=== PATIENT | female | born 1950 | race Caucasian/White ===

== ENCOUNTER 2017-07-21 13:52 | Inpatient (IN) ==
--- NOTE | 2017-07-20 16:46 | Discharge Summary ---
<Madhavi Bush E - Last Filed: 07/20/17 16:43> Date of Encounter: 07/20/17 - Discharge Diagnosis (1) Arthritis of left knee Priority: Primary Status: Chronic (2) Chronic pain Priority: Secondary Status: Chronic Qualifiers: Chronic pain type: other chronic pain Qualified Code(s): G89.29 - Other chronic pain (3) Osteoporosis Priority: Secondary Status: Chronic Qualifiers: Osteoporosis type: unspecified Presence of current pathological fracture: unspecified Qualified Code(s): M81.0 - Age-related osteoporosis without current pathological fracture (4) Asthma Priority: Secondary Status: Chronic Qualifiers: Asthma severity: unspecified severity Asthma persistence: unspecified Asthma complication type: unspecified Qualified Code(s): J45.909 - Unspecified asthma, uncomplicated (5) Nicotine dependence Priority: Secondary Status: Chronic Qualifiers: Nicotine product type: unspecified Substance use status: unspecified nicotine-induced disorder Qualified Code(s): F17.209 - Nicotine dependence, unspecified, with unspecified nicotine-induced disorders (6) HTN (hypertension) Priority: Secondary Status: Chronic Qualifiers: Hypertension type: unspecified Qualified Code(s): I10 - Essential (primary ) hypertension (7) Rheumatoid arthritis Priority: Secondary Status: Acute Qualifiers: Rheumatoid arthritis location: unspecified site Rheumatoid factor presence : without rheumatoid factor Qualified Code(s): M06.00 - Rheumatoid arthritis without rheumatoid factor, unspecified site - Discharge Medications Home Medications: Albuterol Sulfate [Proair Hfa] 2 puff IH Q4H PRN 06/30/16 [History] Cetirizine HCl [Zyrtec] 10 mg PO DAILY 06/30/16 [History] Montelukast [Singulair] 10 mg PO QPM 06/30/16 [History] Paroxetine [Paxil] 30 mg PO DAILY 06/30/16 [History] amLODIPine [Norvasc] 10 mg PO DAILY 06/30/16 [History] Aspirin Enteric Coated [Aspirin EC] 325 mg PO DAILY 21 Days #21 tablet. [Rx] Alendronate Sodium 70 mg PO WE 07/21/17 [History] Cyanocobalamin (Vitamin B-12) [Vitamin B12] 1,000 mcg PO DAILY 07/21/17 [History ] Etanercept [Enbrel] 50 mg SQ WE 07/21/17 [History] Hydrocodone/Acetaminophen [Abbott 5-325 Tablet] 1 tab PO TID PRN 07/21/17 [ History] Hydroxychloroquine [Plaquenuil] 200 mg PO BID 07/21/17 [History] Linaclotide [Linzess] 290 mcg PO DAILY 07/21/17 [History] Mometasone/Formoterol [Dulera 200 Mcg/5 Mcg Inhaler] 2 puff IH BID 07/21/17 [ History] predniSONE [PredniSONE] 5 mg PO DAILY 07/21/17 [History] raNITIdine HCl [Ranitidine HCl] 150 mg PO DAILY 07/21/17 [History] Allergies/Adverse Reactions: 3 Allergy/AdvReac Type Severity Reaction Status Date / Time No Known Allergies Allergy Verified 07/11/17 15:41 Primary care physician: Cha Araiza CNP - Patient Status Disposition: Transfer Inpatient Rehab Fac Condition: Good - Discharge Instructions Follow Up With: Cha Araiza CNP [Primary Care Provider] - - Hospital Course Hospital course: Ms. Cotto is a 67 year old female - Time Spent with Patient Total time spent providing and/or coordinating discharge services: <Alex Watkins - Last Filed: 07/23/17 08:11> Date of Encounter: 07/23/17 Time of Encounter: 08:09 - Discharge Diagnosis (1) Obesity (BMI 30.0-34.9) Priority: Secondary Status: Chronic (2) Arthritis of left knee Priority: Primary Status: Chronic (3) Chronic pain Priority: Secondary Status: Chronic Qualifiers: Chronic pain type: other chronic pain Qualified Code(s): G89.29 - Other chronic pain (4) Osteoporosis Priority: Secondary Status: Chronic Qualifiers: Osteoporosis type: unspecified Presence of current pathological fracture: unspecified Qualified Code(s): M81.0 - Age-related osteoporosis without current pathological fracture (5) Asthma Priority: Secondary Status: Chronic Qualifiers: Asthma severity: unspecified severity Asthma persistence: unspecified Asthma complication type: unspecified Qualified Code(s): J45.909 - Unspecified asthma, uncomplicated (6) Nicotine dependence Priority: Secondary Status: Chronic Qualifiers: Nicotine product type: unspecified Substance use status: unspecified nicotine-induced disorder Qualified Code(s): F17.209 - Nicotine dependence, unspecified, with unspecified nicotine-induced disorders (7) HTN (hypertension) Priority: Secondary Status: Chronic Qualifiers: Hypertension type: unspecified Qualified Code(s): I10 - Essential (primary ) hypertension (8) Rheumatoid arthritis Priority: Secondary Status: Acute Qualifiers: Rheumatoid arthritis location: unspecified site Rheumatoid factor presence : without rheumatoid factor Qualified Code(s): M06.00 - Rheumatoid arthritis without rheumatoid factor, unspecified site (9) Status post total left knee replacement Priority: Primary Status: Acute (10) Acute blood loss anemia Priority: Primary Status: Acute Primary care physician: Cha Araiza CNP - Patient Status Functional capacity at discharge: uses cane/walker Overall status at discharge: patient is progressing back to baseline - Hospital Course Hospital course: Ms. Cotto is a 67 year old female post total knee replacement The patient had an uneventful postoperative course. They received antibiotics and physical therapy and were discharged in stable condition. There will follow -up in the office in 2 weeks. - Time Spent with Patient Total time spent providing and/or coordinating discharge services:
--- NOTE | 2017-07-20 16:47 | Physician Discharge Referral ---
ExtendedCare Referral Info Transfer To: [facility]S [facility] BEDS AT [facility] Provider in Charge: Dr Alex Watkins - Diagnosis (1) Arthritis of left knee Priority: Primary Status: Chronic (2) Chronic pain Priority: Secondary Status: Chronic (3) Osteoporosis Priority: Secondary Status: Chronic (4) Asthma Priority: Secondary Status: Chronic (5) Nicotine dependence Priority: Secondary Status: Chronic (6) HTN (hypertension) Priority: Secondary Status: Chronic (7) Rheumatoid arthritis Priority: Secondary Status: Acute (8) Status post total left knee replacement Priority: Primary Status: Acute Expected Duration of Placement: less than 30 days Prognosis: Good Aware of Diagnosis: Patient Aware of Prognosis: Patient - Transfer Medications Prescriptions: Aspirin Enteric Coated [Aspirin EC] 325 mg PO DAILY 21 Days #21 tablet. Home Medications: Albuterol Sulfate [Proair Hfa] 1 puff IH DAILY 06/30/16 [History] Cetirizine HCl [Zyrtec] 10 mg PO DAILY 06/30/16 [History] Cyanocobalamin (Vitamin B-12) [Vitamin B12] 5,000 mcg PO DAILY 06/30/16 [History ] Hydrocodone/Acetaminophen [Shamrock 5-325 Tablet] 1 each PO 3-4XD PRN #6 tablet [Rx] Mometasone/Formoterol [Dulera 100 Mcg/5 Mcg Inhaler] 13 gm IH DAILY 06/30/16 [ History] Montelukast [Singulair] 10 mg PO DAILY 06/30/16 [History] Naproxen [Naprosyn] 500 mg PO BID 06/30/16 [History] Paroxetine [Paxil] 30 mg PO DAILY 06/30/16 [History] Tramadol HCl [Ultram] 50 mg PO TID PRN 06/30/16 [History] amLODIPine [Norvasc] 10 mg PO DAILY 06/30/16 [History] Aspirin Enteric Coated [Aspirin EC] 325 mg PO DAILY 21 Days #21 tablet. [Rx] Allergies/Adverse Reactions: 3 Allergy/AdvReac Type Severity Reaction Status Date / Time No Known Allergies Allergy Verified 07/11/17 15:41 - Respiratory Orders Smoking Cessation: Smoking cessation has been advised. For more information, call the [place] Tobacco Quit Line at 0-978-UROJ-NOW. - Ancillary Orders May use pressure relief devices daily prn, May go on KAVON w/family/respon libertarian w /meds at nurse discretion PRN, May consult with Dentist, Bomb Squad Commander, Eligibility Examiner PRN - Mobility Orders Chair, Ambulate - Rehabiliation Orders Rehab Potential: Good Rehab Orders: Evaluation for Physical Therapy, Evaluation for Occupational Therapy Other: Total Knee replacement Precautions x 6 weeks Apply cold therapy wrap 3-6x/day for 20 minutes at a time. Encourage ambulation throughout the day and incentive spirometer 10x/hour. Elevate affected extremity above heart as tolerated. Brace: Wear knee immobilizer at night x 2 weeks. - Treatments Skin tear care topically daily PRN per policy List/Other: Opsite placed. Keep dressing intact until first follow up appointment. If > 50% saturated, notify office, remove dressing and place appropriate dressing back in place. Leave Zipline intact. Opsite dressing is water resistant, not water- proof. OK to shower, but do not get dressing wet. - Diet Orders Regular CERTIFICATION: I certify that the transfer of the above named patient to an Extended Care Facility is necessary for the continuing treatment of the diagnosis listed. The above information is true and accurate reflection of patient's current condition. Confidential - Redisclosure prohibited without a patient's written consent.
[2017-07-21] MEDS ORDERED: Albuterol 2.5 MG/3 ML NEBULIZER IH ONE (14:12)
[2017-07-21] MEDS ORDERED: CeFAZolin Syr 2,000MG/20 ML 2,000 MG/20 ML SYRINGE IVPB ONE (14:12)
[2017-07-21] MEDS ORDERED: Plasma-Lyte A (PH 7.4) 1,000 ML IVC SCH (14:15)
--- NOTE | 2017-07-21 14:26 | Anesthesia Evaluation PreOp ---
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 [Rx] Alendronate Sodium [Alendronate Sodium] 70 mg PO WE 07/21/17 [History] Cyanocobalamin (Vitamin B-12) [Vitamin B12] 1,000 mcg PO DAILY 07/21/17 [History ] Etanercept [Enbrel] 50 mg SQ WE 07/21/17 [History] Hydrocodone/Acetaminophen [Nichols 5-325 Tablet] 1 tab PO TID PRN 07/21/17 [ History] Hydroxychloroquine [Plaquenuil] 200 mg PO BID 07/21/17 [History] Linaclotide [Linzess] 290 mcg PO DAILY 07/21/17 [History] Mometasone/Formoterol [Dulera 200 Mcg/5 Mcg Inhaler] 2 puff IH BID 07/21/17 [ History] predniSONE [PredniSONE] 5 mg PO DAILY 07/21/17 [History] raNITIdine HCl [Ranitidine HCl] 150 mg PO DAILY 07/21/17 [History] 3 Allergy/AdvReac Type Severity Reaction Status Date / Time No Known Allergies Allergy Verified 07/11/17 15:41 - Meds/Allergy Pre-op Review Medications Reviewed: Yes Allergies Reviewed: Yes Beta Blockers on Current Med List: No Anesthesia Results - Labs Laboratory Tests 12/08/17 12/08/17 12/08/17 16:10 16:10 16:10 WBC 8.1 Hgb 11.3 L Hct 35.7 Plt Count 413 H PT 10.2 INR 1.0 APTT 26.0 Sodium 138 Potassium 3.5 BUN 12 Creatinine 0.76 - Imaging EKG: report reviewed (07/11/2017 SINUS RHYTHM WITH SINUS ARRHYTHMIA INTRAVENTRICULAR CONDUCTION DELAY POSSIBLE LATERAL MYOCARDIAL INFARCTION, OF INDETERMINATE AGE) Anesthesia Exam O2 Sat Height 1.6 m Height 1.6 m Weight 87.09 kg Weight 87.09 kg O2 Sat by Pulse Oximetry 98 Vital Signs Temp Pulse Resp BP Pulse Ox 97.5 F L 92 20 137/87 98 07/21/17 14:21 07/21/17 14:21 07/21/17 14:21 07/21/17 14:21 07/21/17 14:21 Height: 5'3'' Weight: 192 lbs NPO (# of Hours): 8 Pain Scale: 7 (left knee) Pain Scale Used: Numeric (1 - 10) - HEENT Pupil (Motor): EOMI (+) Mallampati: II Teeth: Normal, Missing Denture Type: Upper: Complete Oral Opening: Greater than 3 - 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
[2017-07-21] MEDS ORDERED: Scopolamine Patch 1.5 MG PATCH.TD72 TD ONE (15:07)
--- NOTE | 2017-07-21 15:30 | History & Physical Report ---
Date of Encounter: 07/21/17 Time of Encounter: 15:29 24 Hour HP Update - Instructions Instructions: If the History and Physical is less than 30 days old and was completed prior to A.M. admission and or procedure and has NOT been updated on calendar day of procedure please complete this update prior to performing procedure. - Update Patient reports changes in Medical Condition: No Changes in examination, assessment, or condition: No Changes in Medication: No Preop tests/diagnostics Reviewed: Yes Surgery Remains Indicated: Yes Consent for Planned Operative Procedure(s) Verified: Yes - Pre-Operative Checklist Preoperative Checklist Indicated: No Prophylactic Antibiotic Ordered: Yes Is VTE Prophylaxis Indicated?: Yes
[2017-07-21] MEDS ORDERED: Bupivacaine/Clonidine Syringe 1 EACH SYRINGE ONE (16:01)
[2017-07-21] MEDS ORDERED: ROPIVACAINE HCL/PF 0.5% 30 ML VIAL ONE (16:01)
[2017-07-21] MEDS ORDERED: *HR* FentaNYL (PF) 100 MCG/2 ML VIAL ONE ×3 (16:03→16:57)
[2017-07-21] MEDS ORDERED: Ethanol\\Acetic Acid\\Na Ace\\Ben 1,000 ML IRRIG.SOLN IR ONE (16:08)
--- NOTE | 2017-07-21 16:35 | Anesthesia Procedures ---
Date of Encounter: 07/21/17 Time of Encounter: 16:20 Procedures: Anesthesia - Nerve Block Procedure Date: 07/21/17 Time: 16:25 Allergies/Adv Reactions: K [id number] Pre-op Diagnosis: Left Knee Arthritis Surgical Procedure: Left Total Knee Arthroplasty Checklist: Correct Patient Identifier, Correct procedure, History checked Correct side: Left Blood Thinner: No Monitor Applied: EKG, BP, Pulse Oximetry Supplemental Oxygen via Nasal Cannula (L/min): 2 Sedation: Fentanyl (mcg): 100 Indication: Post Op Analgesia Pre-op Neuro Deficits: No Block Type: Femoral, Other Catheter placed: No Sterile Technique: Yes Ultrasound used: Yes Anatomy identified: Yes Visual spread of Local: Yes Neuro Stimulation: Yes Nerve Stimulator Range: 0.2 - 0.4 mA Blood on Needle Aspiration: No Smooth Injection of Local: Yes Pain with Injection of Local: No Prep: Chlorhexadine Needle: 22 x 50 mm Stimuplex, 21 x 100 mm Stimuplex Local: 0.25% Bupivicaine w/Clonidine 20 mcg/cc, Ropivacaine Volume (cc): 55 Number of Attempts: 1 Complications: None/effective block (Ropivacaine 0.5% 30ml for Femoral Block)
[2017-07-21] MEDS ORDERED: *HR* Phenylephrine 10 MG/ML VIAL ONE (16:42)
[2017-07-21] MEDS ORDERED: Dexamethasone 4 MG/ML VIAL ONE (16:54)
[2017-07-21] MEDS ORDERED: Ondansetron 4 MG/2 ML VIAL ONE (16:54)
[2017-07-21] MEDS ORDERED: *HR* Midazolam HCl 2 MG/2 ML VIAL ONE (16:54)
[2017-07-21] MEDS ORDERED: *HR* HYDROmorphone 2 MG/ML SYRINGE ONE (16:54)
[2017-07-21] MEDS ORDERED: *HR* Propofol 200 MG/20 ML VIAL IVP ONE (16:54)
[2017-07-21] MEDS ORDERED: Lidocaine -MPF 2% 2 ML VIAL ONE (16:54)
[2017-07-21] MEDS ORDERED: *HR* Promethazine 25 MG/ML VIAL IVP PRN (17:01)
[2017-07-21] MEDS ORDERED: *HR* HYDROmorphone (PF) 1 MG/ML SYRINGE IVP PRN ×2 (17:01→18:55)
[2017-07-21] MEDS ORDERED: *HR* Meperidine 25 MG/ML SYRINGE IVP PRN (17:01)
[2017-07-21] MEDS ORDERED: *HR* Labetalol 20 MG/4 ML SYRINGE IVP PRN (17:01)
[2017-07-21] MEDS ORDERED: Ondansetron 4 MG/2 ML VIAL IVP ONE (17:01)
--- NOTE | 2017-07-21 17:16 | Orthopedic Operative Note ---
Date of procedure: 07/21/17 Pre-op diagnosis: Left knee arthritis Post-op diagnosis: same (Rheumatoid arthritis) Procedure: Procedure: Left Total knee replacement Estimated blood loss: 200 cc Hardware: Metal and polyethylene replacement. Arthrex Femur: 4 Tibia: 3 PS insert: 14 Patella 34 Exam Under anesthesia: Full flexion and extension no instability Procedural Notes: Grade 4 arthritic changes medial compartment and patellofemoral joint. Operative procedure: The patient was brought to the operating room and placed on the operating room table. After general anesthesia was administered the operative knee was examined. Findings were noted in the exam under anesthesia. The operative extremity was prepped and draped in sterile surgical fashion. The patient received IV antibiotics prior to skin incision. A standard midline incision was made centered over the patella. The incision was made through the skin and subcutaneous tissue. A medial parapatellar tendon approach was performed. She noted significant synovitis secondary to her RA. Cultures were obtained Gram stain obtained as well. No purulent material identified. Gram stain negative for bacteria. Care was taken to preserve tissue along the medial aspect of the patella. And to protect the patella tendon. The deep MCL was released off the medial tibia. The infra patella fat pad was excised. Knee was brought into flexion. She noted to have grade 4 arthritic changes medial compartment and patellofemoral joint. The entry hole was made for the intramedullary femoral guide. The guide was seated in 6 degrees of valgus. Anterior cut was made followed by the distal cut. The ACL the PCL the medial and the lateral menisci were excised. The tibia was subluxed forward. The entry hole was made for the intramedullary tibial guide. Guide was seated to resect 2 mm off the more abnormal side. The knee was brought into flexion the distal femur was sized to a 4. The femoral guide was seated, the anterior cut was made followed by the posterior condylar cut, followed by the chamfer cuts. The finishing guide was seated the box cut was made and the lug holes were drilled. The tibia was sized to a 3, the tibial tray was seated and prepared with the large drill followed by the fin cutter. Trial reduction revealed full extension no varus valgus instability with the appropriate 14 PS Arely. The patella was everted and cut was made at the level of the insertion of the quadriceps and patella tendon. The patella was sized 34 the guide was seated and the lug holes are drilled. Trial reduction revealed excellent patella tracking. All trial components were removed all bony surfaces were irrigated. The tibia was cemented first followed by the femur. The 14 PS Arely was seated and the knee was brought into full extension. The patella was cemented and held in place with the patellar holding clamp. After the cement had hardened, the knee sat for 2 minutes with a Betadine saline solution. The PA close the knee. The knee was then irrigated out with 2 L of pulse irrigation. The extensor mechanism was closed with #2 FiberWire suture and #2 PDS suture. The subcutaneous tissue was then irrigated and closed deep with #1 PDS suture superficially with 0 PDS suture and skin was closed with skin sweta. The patient was then placed in a sterile dressing and a postoperative brace extubated and transferred to recovery room in stable condition. Anesthesia: KELLY Surgeon: Alex Watkins Pacs Administrator: Madhavi Bush Estimated blood loss (cc): 200 Condition: stable Disposition: PACU
[2017-07-21] MEDS ORDERED: *HR* Enoxaparin 30 MG/0.3 ML SYRINGE SQ SCH (18:00)
[2017-07-21 18:14] LABS: Hematocrit 32.7 % (35.3-44.9); Hemoglobin 10.6 g/dL (11.5-15.4)
--- NOTE | 2017-07-21 18:50 | Anesthesia Evaluation Post Op ---
Date of Encounter: 07/21/17 Time of Encounter: 18:49 - Vital Signs Vital Signs: Vital Signs/O2 Sat, Most Current Temp Pulse Resp BP Pulse Ox 97.6 F 84 18 139/77 92 07/21/17 18:20 07/21/17 18:40 07/21/17 18:40 07/21/17 18:40 07/21/17 18:40 - Lungs Lungs: Clear Ascult./Percussion - Airway Airway: Non-obstructed - Cardiovascular Regular Rate - Mental Status Mental Status: Alert & Oriented, Answers Appropriately - Pain Pain Scale: 0 Pain Scale used: Numeric (1 - 10) - Nausea Vomiting Nausea Vomiting: Not Present - Hydration Hydration: Ice chips, Has not voided - Discharge PostOp Status: Transfer Patient to floor
[2017-07-21] MEDS ORDERED: Naloxone 0.4 MG/ML INJ IVP PRN (18:55)
[2017-07-21] MEDS ORDERED: Temazepam 15 MG CAPSULE PO PRN (18:55)
[2017-07-21] MEDS ORDERED: Sennosides 8.6 MG TABLET PO PRN (18:55)
[2017-07-21] MEDS ORDERED: MOM Conc 10 ML UD.LIQ PO PRN (18:55)
[2017-07-21] MEDS ORDERED: Ringers Solution, Lactated 1,000 ML IVC SCH (18:55)
[2017-07-21] MEDS ORDERED: Ondansetron 4 MG/2 ML VIAL IVP PRN (18:55)
[2017-07-21] MEDS ORDERED: NON-FORMULARY MEDICATION 1 EACH EACH (Mometasone/Formoterol [Dulera 200 Mcg/5 Mcg Inhaler] IH SCH (21:00)
[2017-07-21] MEDS: Budesonide/Formoterol 160/4.5 MDI IH SCH (22:10)
[2017-07-22] MEDS: CeFAZolin Premix DUPLEX 2,000 MG/50 ML BAG IVPB SCH ×2 (01:47→09:30)
[2017-07-22] MEDS: *HR* OxyCODONE Immed Rel 5 MG TABLET PO PRN ×4 (01:54→16:12)
[2017-07-22] MEDS: *HR* Enoxaparin 30 MG/0.3 ML SYRINGE SQ SCH ×2 (05:41→16:47)
--- NOTE | 2017-07-22 06:50 | Orthopedics Progress Note ---
Date of Encounter: 07/22/17 Time of Encounter: 06:50 - Assessment and Plan (1) Obesity (BMI 30.0-34.9) Current Visit: Yes Status: Chronic (2) Arthritis of left knee Current Visit: No Status: Chronic (3) Chronic pain Current Visit: No Status: Chronic Qualifiers: Chronic pain type: other chronic pain Qualified Code(s): G89.29 - Other chronic pain (4) Osteoporosis Current Visit: No Status: Chronic Qualifiers: Osteoporosis type: unspecified Presence of current pathological fracture: unspecified Qualified Code(s): M81.0 - Age-related osteoporosis without current pathological fracture (5) Asthma Current Visit: No Status: Chronic Qualifiers: Asthma severity: unspecified severity Asthma persistence: unspecified Asthma complication type: unspecified Qualified Code(s): J45.909 - Unspecified asthma, uncomplicated (6) Nicotine dependence Current Visit: No Status: Chronic Qualifiers: Nicotine product type: unspecified Substance use status: unspecified nicotine-induced disorder Qualified Code(s): F17.209 - Nicotine dependence, unspecified, with unspecified nicotine-induced disorders (7) HTN (hypertension) Current Visit: No Status: Chronic Qualifiers: Hypertension type: unspecified Qualified Code(s): I10 - Essential (primary ) hypertension (8) Rheumatoid arthritis Current Visit: No Status: Acute Qualifiers: Rheumatoid arthritis location: unspecified site Rheumatoid factor presence : without rheumatoid factor Qualified Code(s): M06.00 - Rheumatoid arthritis without rheumatoid factor, unspecified site (9) Status post total left knee replacement Current Visit: No Status: Acute Subjective Interval history: Patient was seen this morning doing well without complaints. Afebrile vital signs stable. Operative extremity: Neurovascularly intact Dressing clean dry and intact Calves nontender Assessment and plan: Continue with postoperative care Hematocrit 32 Objective Vital signs: Vital Signs Temp Pulse Resp BP Pulse Ox 07/22/17 04:32 98.5 F 97 16 107/64 96 07/21/17 22:15 98.6 F 88 16 122/68 95 07/21/17 22:07 17 96 07/21/17 21:15 98.5 F 68 16 128/78 96 07/21/17 20:53 97.9 F 88 15 128/76 93 07/21/17 20:15 98.5 F 75 16 124/68 96 07/21/17 19:45 98.5 F 88 16 128/78 94 07/21/17 19:15 98.4 F 78 16 128/76 95 07/21/17 18:50 97.6 F 87 18 125/78 92 07/21/17 18:40 84 18 139/77 92 07/21/17 18:30 86 18 132/87 92 07/21/17 18:20 97.6 F 89 18 134/87 92 07/21/17 18:10 90 18 127/99 95 07/21/17 18:00 90 16 135/93 93 07/21/17 17:50 98.6 F 87 12 156/97 96 07/21/17 16:26 79 139/85 96 07/21/17 16:19 85 154/93 95 07/21/17 16:09 91 160/89 91 07/21/17 14:21 97.5 F L 92 20 137/87 98 Intake and Output 07/21/17 07/21/17 07/22/17 15:59 23:59 07:59 Output Total 200 / 200 Balance -200 / -200 Output: Urine 0 / 0 Estimated Blood Loss 200 / 200 Other: Weight 87.09 kg - Labs CBC & BMP: 07/21/17 18:03 Labs: Abnormal lab results Hgb 10.6 g/dL (11.5-15.4) L 07/21/17 18:03 Hct 32.7 % (35.3-44.9) L 07/21/17 18:03 - VTE Documentation of Mechanical Device: Venous foot pump, device Consult Discharge Plan - Plan Referrals: Cha Araiza, PROFILE GRINDER TECHNICIAN [Primary Care Provider] -
[2017-07-22 06:51] LABS: Hematocrit 29.3 % (35.3-44.9); Hemoglobin 9.4 g/dL (11.5-15.4)
[2017-07-22 06:56] LABS: BUN/Creatinine Ratio 16 (6-26); Blood Urea Nitrogen 9 mg/dL (7-20); Calcium 8.9 mg/dL (8.6-10.8); Carbon Dioxide 26 mEq/L (19-29); Chloride 98 mEq/L (98-109); Glucose 124 mg/dL (70-99); Osmolality,Calculated 278 (280-300); Potassium 3.7 mEq/L (3.5-4.5); Sodium 134 mEq/L (136-145); eGFR For African Americans > 60 (> 60); eGFR For Non-African Americans > 60 (> 60)
[2017-07-22] MEDS: Loratadine 10 MG TABLET PO SCH (09:32)
[2017-07-22] MEDS: predniSONE 5 MG TABLET PO SCH (09:32)
[2017-07-22] MEDS: Famotidine 20 MG TABLET PO SCH (09:32)
[2017-07-22] MEDS: amLODIPine 5 MG TABLET PO SCH (09:32)
[2017-07-22] MEDS: Cyanocobalamin (B-12) 1,000 MCG TABLET PO SCH (09:32)
[2017-07-22] MEDS: LINZESS 290 MCG PO SCH (09:33)
[2017-07-22] MEDS: Budesonide/Formoterol 160/4.5 MDI IH SCH ×2 (11:37→20:06)
--- NOTE | 2017-07-22 12:19 | Event Note ---
Date of Encounter: 07/22/17 Time of Encounter: 12:50 PCR- POD#1 L TKR PCR - Patient seen at bedside. 07/22 - H/H 9.4/29.3 Preliminary cultures negative Pain control: Adequate Participating in PT. All questions and concerns addressed. Educated on use of incentive spirometer, ambulation, and hydration. Patient educated on post-operative restrictions and care. Addressed: see above. patient having nausea - has patch presently. D/C plan: [facility] - pending acceptance.
[2017-07-22] MEDS ORDERED: *HR* Promethazine 25 MG/ML VIAL IVP PRN (17:05)
[2017-07-23] MEDS: *HR* Enoxaparin 30 MG/0.3 ML SYRINGE SQ SCH (06:16)
[2017-07-23 06:33] LABS: Hematocrit 29.9 % (35.3-44.9)
[2017-07-23 07:00] LABS: BUN/Creatinine Ratio 9 (6-26); Blood Urea Nitrogen 4 mg/dL (8-23); Calcium 8.9 mg/dL (8.6-10.3); Carbon Dioxide 28 mEq/L (23-29); Chloride 94 mEq/L (98-107); Glucose 121 mg/dL (70-105); Osmolality,Calculated 268 (280-300); Potassium 3.4 mEq/L (3.5-5.1); Sodium 130 mEq/L (136-145); eGFR For African Americans > 60 (> 60); eGFR For Non-African Americans > 60 (> 60)
[2017-07-23] MEDS: Budesonide/Formoterol 160/4.5 MDI IH SCH (07:34)
--- NOTE | 2017-07-23 08:11 | Orthopedics Progress Note ---
Date of Encounter: 07/23/17 Time of Encounter: 08:11 - Assessment and Plan (1) Obesity (BMI 30.0-34.9) Current Visit: Yes Status: Chronic (2) Arthritis of left knee Current Visit: No Status: Chronic (3) Chronic pain Current Visit: No Status: Chronic Qualifiers: Chronic pain type: other chronic pain Qualified Code(s): G89.29 - Other chronic pain (4) Osteoporosis Current Visit: No Status: Chronic Qualifiers: Osteoporosis type: unspecified Presence of current pathological fracture: unspecified Qualified Code(s): M81.0 - Age-related osteoporosis without current pathological fracture (5) Asthma Current Visit: No Status: Chronic Qualifiers: Asthma severity: unspecified severity Asthma persistence: unspecified Asthma complication type: unspecified Qualified Code(s): J45.909 - Unspecified asthma, uncomplicated (6) Nicotine dependence Current Visit: No Status: Chronic Qualifiers: Nicotine product type: unspecified Substance use status: unspecified nicotine-induced disorder Qualified Code(s): F17.209 - Nicotine dependence, unspecified, with unspecified nicotine-induced disorders (7) HTN (hypertension) Current Visit: No Status: Chronic Qualifiers: Hypertension type: unspecified Qualified Code(s): I10 - Essential (primary ) hypertension (8) Rheumatoid arthritis Current Visit: No Status: Acute Qualifiers: Rheumatoid arthritis location: unspecified site Rheumatoid factor presence : without rheumatoid factor Qualified Code(s): M06.00 - Rheumatoid arthritis without rheumatoid factor, unspecified site (9) Status post total left knee replacement Current Visit: No Status: Acute (10) Acute blood loss anemia Current Visit: Yes Status: Acute Subjective Interval history: Patient was seen this morning doing well without complaints. Afebrile vital signs stable. Operative extremity: Neurovascularly intact Dressing clean dry and intact Calves nontender Assessment and plan: Continue with postoperative care Hematocrit 30 dc today Objective Vital signs: Vital Signs Temp Pulse Resp BP Pulse Ox 07/23/17 07:34 18 96 07/23/17 04:19 98.6 F 98 16 154/84 96 07/23/17 00:22 98.4 F 91 15 138/73 92 07/22/17 20:07 18 94 07/22/17 14:39 98.3 F 104 20 160/75 92 07/22/17 11:39 18 93 07/22/17 11:31 98.8 F 96 18 156/78 93 Intake and Output 07/22/17 07/23/17 07/23/17 23:59 07:59 15:59 Intake Total 100 / 100 Output Total 800 / 800 1200 / 1200 Balance -700 / -700 -1200 / -1200 Intake: Oral 100 / 100 Output: Urine 800 / 800 1200 / 1200 Other: Meal Dinner Percent of Meal Consumed 25% Weight 87 kg Patient Weight 07/23/17 23:59 Weight 87 kg - Labs CBC & BMP: 07/23/17 06:05 07/23/17 06:05 Labs: Abnormal lab results Hgb 10.0 g/dL (11.5-15.4) L 07/23/17 06:05 Hct 29.9 % (35.3-44.9) L 07/23/17 06:05 Sodium 130 mEq/L (136-145) L 07/23/17 06:05 Potassium 3.4 mEq/L (3.5-5.1) L 07/23/17 06:05 Chloride 94 mEq/L (98-107) L 07/23/17 06:05 BUN 4 mg/dL (8-23) L 07/23/17 06:05 Creatinine 0.44 mg/dL (0.60-1.20) L 07/23/17 06:05 Glucose 121 mg/dL (70-105) H 07/23/17 06:05 Calculated Osmolality 268 (280-300) L 07/23/17 06:05 - VTE Documentation of Mechanical Device: Venous foot pump, device Consult Discharge Plan - Plan Referrals: Cha Araiza SUPPLY ROOM CLERK [Primary Care Provider] -
[2017-07-23] MEDS: LINZESS 290 MCG PO SCH (09:15)
[2017-07-23] MEDS: Cyanocobalamin (B-12) 1,000 MCG TABLET PO SCH (09:19)
[2017-07-23] MEDS: predniSONE 5 MG TABLET PO SCH (09:19)
[2017-07-23] MEDS: amLODIPine 5 MG TABLET PO SCH (09:19)
[2017-07-23] MEDS: Loratadine 10 MG TABLET PO SCH (09:19)
[2017-07-23] MEDS: Famotidine 20 MG TABLET PO SCH (09:19)
[2017-07-23 11:44] VITALS: BP 135/78
[2017-07-23] MEDS: *HR* OxyCODONE Immed Rel 5 MG TABLET PO PRN (11:56)
--- NOTE | 2017-07-23 12:49 | Event Note ---
Date of Encounter: 07/23/17 Time of Encounter: 11:30 PCR- POD#2 L TKR PCR - Patient seen at bedside. 07/22 - H/H 9.4/29.3 07/23 - H/H 10.0/29.9 Preliminary cultures negative Pain control: Adequate Participating in PT. All questions and concerns addressed. Educated on use of incentive spirometer, ambulation, and hydration. Patient educated on post-operative restrictions and care. Addressed: see above. patient having nausea - has patch presently. D/C plan: Rekha santizo
[2017-07-23] MEDS ORDERED: ENBREL 50 MG SQ SCH (15:31)
[2017-07-23] MEDS ORDERED: ALENDRONATE 70 MG PO SCH (15:31)
== END 2017-07-23 13:02 | DRG 470 ==
LOC: SAMDAY 13:52 → 3NENU 18:00
PROVIDERS: ADMIT Orthopaedic Surgery; ATTEND Orthopaedic Surgery

== ENCOUNTER 2017-11-10 11:52 | Inpatient (IN) ==
[2017-11-10] MEDS ORDERED: Albuterol 2.5 MG/3 ML NEBULIZER IH ONE (12:08)
[2017-11-10] MEDS ORDERED: CeFAZolin Syr 2,000MG/20 ML 2,000 MG/20 ML SYRINGE IVPB ONE (12:19)
[2017-11-10] MEDS ORDERED: Gabapentin 300 MG CAPSULE PO ONE (12:32)
[2017-11-10] MEDS ORDERED: Famotidine 20 MG/2 ML VIAL IVP ONE (12:32)
--- NOTE | 2017-11-10 12:32 | History & Physical Report ---
Date of Encounter: 11/10/17 Time of Encounter: 12:31 24 Hour HP Update - Instructions Instructions: If the History and Physical is less than 30 days old and was completed prior to A.M. admission and or procedure and has NOT been updated on calendar day of procedure please complete this update prior to performing procedure. - Update Patient reports changes in Medical Condition: No Changes in examination, assessment, or condition: No Changes in Medication: No Preop tests/diagnostics Reviewed: Yes Surgery Remains Indicated: Yes Consent for Planned Operative Procedure(s) Verified: Yes - Pre-Operative Checklist Preoperative Checklist Indicated: No Prophylactic Antibiotic Ordered: Yes Is VTE Prophylaxis Indicated?: NO
[2017-11-10] MEDS: Ringers Solution, Lactated 1,000 ML IVC SCH ×2 (12:34→15:50)
--- NOTE | 2017-11-10 12:35 | Anesthesia Evaluation PreOp ---
Date of Encounter: 11/10/17 Time of Encounter: 12:30 - Past History Planned Operation: Rt TKA Cardiac History: HTN, Hyperlipidemia Pulmonary History: Asthma YARN WASHER History: Denies Any Significant HX Other Medical History: GERD, Other (Arthritis) Anesthesia History: No Prior Anesthetic Complications : No Alcohol Use: heavy Drug use: none Medications and Allergies Albuterol Sulfate [Proair Hfa] 2 puff IH Q4H PRN 06/30/16 [History] Cetirizine HCl [Zyrtec] 10 mg PO DAILY 06/30/16 [History] Montelukast [Singulair] 10 mg PO QPM 06/30/16 [History] Paroxetine [Paxil] 30 mg PO DAILY 06/30/16 [History] amLODIPine [Norvasc] 10 mg PO DAILY 06/30/16 [History] Aspirin Enteric Coated [Aspirin EC] 325 mg PO DAILY 21 Days #21 tablet. [Rx] Alendronate Sodium 70 mg PO WE 07/21/17 [History] Cyanocobalamin (Vitamin B-12) [Vitamin B12] 1,000 mcg PO DAILY 07/21/17 [History ] Etanercept [Enbrel] 50 mg SQ WE 07/21/17 [History] Hydrocodone/Acetaminophen [[place] 5-325 Tablet] 1 tab PO TID PRN 07/21/17 [ History] Hydroxychloroquine [Plaquenuil] 200 mg PO BID 07/21/17 [History] Linaclotide [Linzess] 290 mcg PO DAILY 07/21/17 [History] Mometasone/Formoterol [Dulera 200 Mcg/5 Mcg Inhaler] 2 puff IH BID 07/21/17 [ History] predniSONE [PredniSONE] 5 mg PO DAILY 07/21/17 [History] raNITIdine HCl [Ranitidine HCl] 150 mg PO DAILY 07/21/17 [History] 3 Allergy/AdvReac Type Severity Reaction Status Date / Time No Known Allergies Allergy Verified 11/03/17 11:26 Anesthesia Results - Labs Laboratory Tests 11/03/17 11/03/17 11:26 11:26 Hgb 12.1 Hct 37.4 Plt Count 490 H Sodium 138 Potassium 4.0 BUN 14 Creatinine 0.76 - Imaging EKG: report reviewed (R with arrhythmia) Anesthesia Exam O2 Sat Height 1.63 m Height 1.63 m Height 1.63 m Weight 81.647 kg Weight 81.647 kg Weight 81.647 kg O2 Sat by Pulse Oximetry 96 Vital Signs Temp Pulse Resp BP Pulse Ox 98.1 F 101 18 138/85 96 11/10/17 12:08 11/10/17 12:08 11/10/17 12:08 11/10/17 12:08 11/10/17 12:08 Height: 5'4 Weight: 180 lbs NPO (# of Hours): MN Pain Scale: 0 - HEENT Pupil (Motor): Pupils equal, EOMI Mallampati: II Teeth: Edentulous Oral Opening: Greater than 3 - YARN WASHER LOC: Oriented YARN WASHER Motor: Normal RUE, Normal LUE, Normal RLE, Normal LLE, Normal Face YARN WASHER Sensory: Normal: RUE, LUE, RLE, LLE, Face - Cardiac Rhythm: Regular Murmur: None JVD: No Carotid Bruit: No - Pulmonary Breath Sounds: bilateral Clear Respiratory Effort: Symmetrical Anesthesia Assess/Plan ASA Score: 2 Modified Dick Scale for Level of Consciousness: Cooperative, oriented, and tranquil Anesthetic Plan: Regional, MAC Monitoring Plan: Standard Monitors Recovery Plan: PACU (Discussed SAB with duramorph and MAC, Adductor Canal Block , possible GA,agrees to proceed)
--- NOTE | 2017-11-10 12:41 | History & Physical Report ---
Date of Encounter: 11/10/17 Time of Encounter: 12:40 24 Hour HP Update - Instructions Instructions: If the History and Physical is less than 30 days old and was completed prior to A.M. admission and or procedure and has NOT been updated on calendar day of procedure please complete this update prior to performing procedure. - Update Patient reports changes in Medical Condition: No Changes in examination, assessment, or condition: No Changes in Medication: No Preop tests/diagnostics Reviewed: Yes Surgery Remains Indicated: Yes Consent for Planned Operative Procedure(s) Verified: Yes - Pre-Operative Checklist Preoperative Checklist Indicated: No Prophylactic Antibiotic Ordered: Yes Is VTE Prophylaxis Indicated?: Yes
[2017-11-10] MEDS ORDERED: *HR* Midazolam HCl 2 MG/2 ML VIAL ONE ×2 (13:00→15:31)
[2017-11-10] MEDS ORDERED: *HR* FentaNYL (PF) 100 MCG/2 ML VIAL ONE (13:00)
[2017-11-10] MEDS ORDERED: *HR* Propofol 200 MG/20 ML VIAL IVP ONE (13:00)
--- NOTE | 2017-11-10 14:31 | Discharge Summary ---
<Madhavi Bush E - Last Filed: 11/10/17 14:29> Orders not resulted at time of discharge: Pending orders 11/10/17 12:32 US anesthesia pain block [US] Routine Date of Encounter: 11/10/17 - Discharge Diagnosis (1) Arthritis of right knee Priority: Primary Status: Chronic (2) Chronic pain Priority: Secondary Status: Chronic Qualifiers: Chronic pain type: other chronic pain (3) Asthma Priority: Secondary Status: Chronic Qualifiers: Asthma severity: unspecified severity Asthma persistence: unspecified Asthma complication type: unspecified Qualified Code(s): J45.909 - Unspecified asthma, uncomplicated (4) Nicotine dependence Priority: Secondary Status: Chronic (5) HTN (hypertension) Priority: Secondary Status: Chronic Qualifiers: Hypertension type: unspecified Qualified Code(s): I10 - Essential (primary ) hypertension (6) Rheumatoid arthritis Priority: Secondary Status: Chronic Qualifiers: Rheumatoid arthritis location: unspecified site Rheumatoid factor presence : unspecified presence Qualified Code(s): M06.9 - Rheumatoid arthritis, unspecified (7) Status post total right knee replacement Priority: Primary Status: Acute - Hospital Course Hospital course: Ms. Cotto is a 67 year old female - Time Spent with Patient Total time spent providing and/or coordinating discharge services: - Discharge Medications Prescriptions: Aspirin Enteric Coated [Aspirin EC] 325 mg PO BID 10 Days #20 tablet. Oxycodone HCl 5 mg PO Q6H PRN 7 Days #28 tablet PRN Reason: Severe Pain Home Medications: Albuterol Sulfate [Proair Hfa] 2 puff IH Q4H PRN 06/30/16 [History] Cetirizine HCl [Zyrtec] 10 mg PO DAILY 06/30/16 [History] Montelukast [Singulair] 10 mg PO QPM 06/30/16 [History] Paroxetine [Paxil] 30 mg PO DAILY 06/30/16 [History] amLODIPine [Norvasc] 10 mg PO DAILY 06/30/16 [History] Alendronate Sodium 70 mg PO WE 07/21/17 [History] Cyanocobalamin (Vitamin B-12) [Vitamin B12] 1,000 mcg PO DAILY 07/21/17 [History ] Hydrocodone/Acetaminophen [[place] 5-325 Tablet] 1 tab PO TID PRN 07/21/17 [ History] Hydroxychloroquine [Plaquenuil] 200 mg PO BID 07/21/17 [History] Mometasone/Formoterol [Dulera 200 Mcg/5 Mcg Inhaler] 2 puff IH BID 07/21/17 [ History] predniSONE [PredniSONE] 10 mg PO DAILY 07/21/17 [History] Abatacept [Orencia] 125 mg SQ WE 11/10/17 [History] Aspirin Enteric Coated [Aspirin EC] 325 mg PO BID 10 Days #20 tablet. [Rx] Oxycodone HCl 5 mg PO Q6H PRN 7 Days #28 tablet 11/10/17 [Rx] Allergies/Adverse Reactions: 3 Allergy/AdvReac Type Severity Reaction Status Date / Time No Known Allergies Allergy Verified 11/10/17 12:46 Primary care physician: Cha Araiza CNP - Patient Status Disposition: Transfer Inpatient Rehab Fac Condition: Good - Discharge Instructions Follow Up With: Cha Araiza CNP [Primary Care Provider] - <Alex Watkins - Last Filed: 11/11/17 06:23> Orders not resulted at time of discharge: Pending orders 11/10/17 01:00 XR knee RT limited 1-2V [XR] Routine Hemoglobin and Hematocrit [HEME] Routine 11/10/17 12:32 US anesthesia pain block [US] Routine 11/10/17 16:24 Culture,Anaerobic [RM] Routine Culture,Wound [RM] Routine Gram Stain [RM] Stat Date of Encounter: 11/11/17 Time of Encounter: 06:23 - Discharge Diagnosis (1) Chronic pain Priority: Secondary Status: Chronic Qualifiers: Chronic pain type: other chronic pain Qualified Code(s): G89.29 - Other chronic pain (2) Osteoporosis Priority: Secondary Status: Chronic Qualifiers: Osteoporosis type: unspecified Presence of current pathological fracture: unspecified Qualified Code(s): M81.0 - Age-related osteoporosis without current pathological fracture (3) Asthma Priority: Secondary Status: Chronic Qualifiers: Asthma severity: unspecified severity Asthma persistence: unspecified Asthma complication type: unspecified Qualified Code(s): J45.909 - Unspecified asthma, uncomplicated (4) Nicotine dependence Priority: Secondary Status: Chronic Qualifiers: Nicotine product type: unspecified Substance use status: unspecified nicotine-induced disorder Qualified Code(s): F17.209 - Nicotine dependence, unspecified, with unspecified nicotine-induced disorders (5) HTN (hypertension) Priority: Secondary Status: Chronic Qualifiers: Hypertension type: unspecified Qualified Code(s): I10 - Essential (primary ) hypertension (6) Rheumatoid arthritis Priority: Secondary Status: Chronic Qualifiers: Rheumatoid arthritis location: unspecified site Rheumatoid factor presence : unspecified presence Qualified Code(s): M06.9 - Rheumatoid arthritis, unspecified (7) Status post total left knee replacement Priority: Secondary Status: Chronic (8) Obesity (BMI 30.0-34.9) Priority: Secondary Status: Chronic (9) Leukocytosis Priority: Secondary Status: Acute Qualifiers: Leukocytosis type: unspecified Qualified Code(s): D72.829 - Elevated white blood cell count, unspecified (10) Arthritis of right knee Priority: Primary Status: Chronic (11) Status post total right knee replacement Priority: Primary Status: Acute (12) Acute blood loss anemia Priority: Primary Status: Acute - Hospital Course Hospital course: Ms. Cotto is a 67 year old female Status post total knee replacement The patient had an uneventful postoperative course. They received antibiotics and physical therapy and were discharged in stable condition. There will follow -up in the office in 2 weeks. - Time Spent with Patient Total time spent providing and/or coordinating discharge services: Primary care physician: Cha Araiza CNP - Patient Status Functional capacity at discharge: uses cane/walker Overall status at discharge: patient is progressing back to baseline
--- NOTE | 2017-11-10 14:36 | Physician Discharge Referral ---
Home Health/Hosp Referral Info Transfer to: Home Health Attending Provider: Dr Watkins - Diagnosis (1) Status post total right knee replacement Priority: Primary Status: Acute (2) Arthritis of right knee Priority: Primary Status: Chronic (3) Chronic pain Priority: Secondary Status: Chronic (4) Asthma Priority: Secondary Status: Chronic (5) Nicotine dependence Priority: Secondary Status: Chronic (6) HTN (hypertension) Priority: Secondary Status: Chronic (7) Rheumatoid arthritis Priority: Secondary Status: Chronic - Respiratory Orders Smoking Cessation: Smoking cessation has been advised. For more information, call the [place] Tobacco Quit Line at 1-680-ZBZW-NOW. - Dressing/Wound Care Site: right knee Type of Dressing/Treatments w/Frequency: Opsite placed. Keep dressing intact until first follow up appointment. If > 50% saturated, notify office, remove dressing and place appropriate dressing back in place. Leave Zipline intact. Opsite dressing is water resistant, not water- proof. OK to shower, but do not get dressing wet. - Diet/Nutrition Diet/Nutrition Orders: Regular - Activity Activity Orders: Up ad kobe, Ambulate, Chair, Walker - Services Needed Following services are medically necessary services: Nursing, Home Health Aide, Physical Therapy, Occupational Therapy Home Care Orders: Total Knee replacement Precautions x 6 weeks Apply cold therapy wrap 3-6x/day for 20 minutes at a time. Encourage ambulation throughout the day and incentive spirometer 10x/hour. Elevate affected extremity above heart as tolerated. Brace: Wear knee immobilizer at night x 2 weeks. - Transfer Medications Prescriptions: Aspirin Enteric Coated [Aspirin EC] 325 mg PO BID 10 Days #20 tablet. Oxycodone HCl 5 mg PO Q6H PRN 7 Days #28 tablet PRN Reason: Severe Pain Home Medications: Albuterol Sulfate [Proair Hfa] 2 puff IH Q4H PRN 06/30/16 [History] Cetirizine HCl [Zyrtec] 10 mg PO DAILY 06/30/16 [History] Montelukast [Singulair] 10 mg PO QPM 06/30/16 [History] Paroxetine [Paxil] 30 mg PO DAILY 06/30/16 [History] amLODIPine [Norvasc] 10 mg PO DAILY 06/30/16 [History] Alendronate Sodium 70 mg PO WE 07/21/17 [History] Cyanocobalamin (Vitamin B-12) [Vitamin B12] 1,000 mcg PO DAILY 07/21/17 [History ] Hydrocodone/Acetaminophen [[place] 5-325 Tablet] 1 tab PO TID PRN 07/21/17 [ History] Hydroxychloroquine [Plaquenuil] 200 mg PO BID 07/21/17 [History] Mometasone/Formoterol [Dulera 200 Mcg/5 Mcg Inhaler] 2 puff IH BID 07/21/17 [ History] predniSONE [PredniSONE] 10 mg PO DAILY 07/21/17 [History] Abatacept [Orencia] 125 mg SQ WE 11/10/17 [History] Aspirin Enteric Coated [Aspirin EC] 325 mg PO BID 10 Days #20 tablet. [Rx] Oxycodone HCl 5 mg PO Q6H PRN 7 Days #28 tablet 11/10/17 [Rx] Allergies/Adverse Reactions: 3 Allergy/AdvReac Type Severity Reaction Status Date / Time No Known Allergies Allergy Verified 11/10/17 12:46 Certification: Further, I certify that my clinical findings support that this patient is homebound (i.e. absences from home require considerable and taxing effort and are for medical reasons or yazidism services or infrequently or short duration when for other reasons) because: Homebound Reason: Post-surgery restriction and or conditions limit ability to leave home Attestation: My signature below is to certify that this patient is under my care and that I, or nurse practitioner, or a physician car rental sales assistant working with me, has a face-to- face encounter with this patient.
[2017-11-10] MEDS ORDERED: Bupivacaine/Clonidine Syringe 1 EACH SYRINGE ONE (15:04)
--- NOTE | 2017-11-10 15:51 | Anesthesia Procedures ---
Date of Encounter: 11/10/17 Time of Encounter: 15:20 Procedures: Anesthesia - Epidural/Spinal Patient ID/Chart reviewed: Yes Patient examined: Yes Consent Obtained: Yes Supplemental Oxygen: Nasal Cannula Supplemental Oxygen Rate (L/min): 2 Site Prep: Sterile prep and drape, Povidone-Iodine 1% Patient position: upright Local Anesthetic: Lidocaine 1% Amount of Local Anesthetic used: 3 Loading Dose: Other: 2cc 0.5% isobaric marcaine with 250mcg duramorph Interspace Used: L4-L5 Blood: No CSF: Yes Paresthesia: No Spinal Needle Gauge: 22 Spinal Dose: 2cc 0.5% isobaric marcaine with 250mcg duramorph Procedure: Sitting, vss, 800ml fluid bolus in, spaces identified, localized, + csf, negative heme, negative paresthesia, naac - Nerve Block Procedure Date: 11/10/17 Time: 15:30 Surgical Procedure: Right TKA Checklist: Correct Patient Identifier, Correct procedure, History checked Correct side: Right Blood Thinner: No Monitor Applied: EKG, BP, Pulse Oximetry Supplemental Oxygen via Nasal Cannula (L/min): 2 Sedation: Versed (mg): 2 Indication: Post Op Analgesia (per dr. story) Pre-op Neuro Deficits: No Block Type: Other (adductor canal, ipack) Catheter placed: No Sterile Technique: Yes Ultrasound used: Yes Anatomy identified: Yes Visual spread of Local: Yes Neuro Stimulation: No Blood on Needle Aspiration: No Smooth Injection of Local: Yes Pain with Injection of Local: No Prep: Chlorhexadine Needle: 22 x 50 mm Stimuplex (for adductor canal), 21 x 100 mm Stimuplex (for ipack) Local: 0.25% Bupivicaine w/Clonidine 20 mcg/cc (40cc for adductor canal, 20cc for ipack) Volume (cc): 40, 20 Number of Attempts: 1 Complications: None/effective block Vitals: Vital Signs/O2 Sat/Glucose, Most Recent Temp Pulse Resp BP Pulse Ox 98.1 F 84 15 98/71 96 11/10/17 12:08 11/10/17 15:54 11/10/17 15:54 11/10/17 15:54 11/10/17 15:54 Comments: [email or web address]
[2017-11-10] MEDS ORDERED: Propofol 500 MG/50 ML INFUS..BTL ONE (15:53)
[2017-11-10] MEDS ORDERED: Ethanol\\Acetic Acid\\Na Ace\\Ben 1,000 ML IRRIG.SOLN IR ONE (16:13)
[2017-11-10] MEDS ORDERED: Ondansetron 4 MG/2 ML VIAL IVP ONE (16:16)
[2017-11-10] MEDS ORDERED: *HR* OxyCODONE Immed Rel 5 MG TABLET PO PRN (16:16)
[2017-11-10] MEDS ORDERED: MORPHINE SUL Oral CONC 10 MG/0.5 ML ORAL.SYG SL PRN (16:16)
[2017-11-10] MEDS ORDERED: *HR* HYDROmorphone 2 MG TABLET PO PRN (16:16)
[2017-11-10] MEDS ORDERED: EPHEDrine 50 MG/ML VIAL ONE (16:27)
--- NOTE | 2017-11-10 16:48 | Orthopedic Operative Note ---
Date of procedure: 11/10/17 Pre-op diagnosis: Right knee arthritis Post-op diagnosis: same Procedure: Procedure: Right Total knee replacement Estimated blood loss: 200 cc Hardware: Metal and polyethylene replacement. Arthrex Femur: 4 Tibia: 3 PS insert: 14 Patella: 34 Exam Under anesthesia: Valgus alignment full flexion and extension no instability Procedural Notes: Grade 4 arthritic changes all 3 compartments. Operative procedure: The patient was brought to the operating room and placed on the operating room table. After general anesthesia was administered the operative knee was examined. Findings were noted in the exam under anesthesia. The operative extremity was prepped and draped in sterile surgical fashion. The patient received IV antibiotics prior to skin incision. A standard midline incision was made centered over the patella. The incision was made through the skin and subcutaneous tissue. A medial parapatellar tendon approach was performed. Care was taken to preserve tissue along the medial aspect of the patella. And to protect the patella tendon. The deep MCL was released off the medial tibia. The infra patella fat pad was excised. Knee was brought into flexion. Patient noted to have grade 4 arthritic changes all 3 compartments. The entry hole was made for the intramedullary femoral guide. The guide was seated in 6 degrees of valgus. Anterior cut was made followed by the distal cut. The ACL the PCL the medial and the lateral menisci were excised. The tibia was subluxed forward. The entry hole was made for the intramedullary tibial guide. Guide was seated to resect 2 mm off the more abnormal side. The knee was brought into flexion the distal femur was sized to a 4. The femoral guide was seated, the anterior cut was made followed by the posterior condylar cut, followed by the chamfer cuts. The finishing guide was seated the box cut was made and the lug holes were drilled. The tibia was sized to a 3, the tibial tray was seated and prepared with the large drill followed by the fin cutter. Trial reduction revealed full extension no varus valgus instability with the appropriate 14 PS Arely. The patella was everted and cut was made at the level of the insertion of the quadriceps and patella tendon. The patella was sized to 34 the guide was seated and the lug holes are drilled. Trial reduction revealed excellent patella tracking. All trial components were removed all bony surfaces were irrigated. The tibia was cemented first followed by the femur. The 14 PS Arely was seated and the knee was brought into full extension. The patella was cemented and held in place with the patellar holding clamp. After the cement had hardened, the knee sat for 2 minutes with a antibacterial solution. The knee was then irrigated out with 2 L of pulse irrigation. The extensor mechanism was closed with #2 FiberWire suture and #2 PDS suture. The subcutaneous tissue was then irrigated and closed deep with #1 PDS suture superficially with 0 PDS suture and skin was closed with skin sweta. The patient was then placed in a sterile dressing and a postoperative brace extubated and transferred to recovery room in stable condition. Anesthesia: spinal Surgeon: Alex Watkins Was there an assistant statistician present: No Division Sergeant: Adeola Laboy Estimated blood loss (cc): 200 Condition: stable Disposition: PACU
--- NOTE | 2017-11-10 17:51 | Anesthesia Evaluation Post Op ---
Date of Encounter: 11/10/17 Time of Encounter: 17:50 - Vital Signs Vital Signs: Vital Signs/O2 Sat, Most Current Temp Pulse Resp BP Pulse Ox 97.4 F L 76 16 106/69 96 11/10/17 17:44 11/10/17 17:44 11/10/17 17:44 11/10/17 17:44 11/10/17 17:44 - Lungs Lungs: Clear Ascult./Percussion - Airway Airway: Non-obstructed - Cardiovascular Regular Rate - Mental Status Mental Status: Alert & Oriented, Answers Appropriately - Pain Pain Scale: 0 Pain Scale used: Numeric (1 - 10) - Nausea Vomiting Nausea Vomiting: Not Present - Hydration Hydration: NPO, Has not voided - Discharge PostOp Status: Transfer Patient to floor
[2017-11-10 17:53] LABS: Hematocrit 31.7 % (35.3-44.9); Hemoglobin 10.3 g/dL (11.5-15.4)
[2017-11-10] MEDS ORDERED: *HR* Enoxaparin 30 MG/0.3 ML SYRINGE SQ SCH (18:00)
[2017-11-10] MEDS ORDERED: Sennosides 8.6 MG TABLET PO PRN (18:02)
[2017-11-10] MEDS ORDERED: ceFAZolin 2,000 MG in D5% in Water 100 ML IVPB SCH (18:02)
[2017-11-10] MEDS ORDERED: Ringers Solution, Lactated 1,000 ML IVC SCH (18:02)
[2017-11-10] MEDS ORDERED: Temazepam 15 MG CAPSULE PO PRN (18:02)
[2017-11-10] MEDS ORDERED: Ondansetron 4 MG/2 ML VIAL IVP PRN (18:02)
[2017-11-10] MEDS ORDERED: Naloxone 0.4 MG/ML INJ IVP PRN (18:02)
[2017-11-10] MEDS ORDERED: traMADol 50 MG TABLET PO PRN (18:02)
[2017-11-10] MEDS ORDERED: MOM Conc 10 ML UD.LIQ PO PRN (18:02)
[2017-11-10] MEDS: *HR* OxyCODONE/APAP 5/325 TABLET PO PRN (22:13)
[2017-11-10] MEDS: Budesonide/Formoterol 160/4.5 MDI IH SCH (22:52)
[2017-11-11] MEDS: ceFAZolin 2,000 MG in 0.9 % Sodium Chloride 100 ML IVPB SCH ×2 (00:04→09:18)
[2017-11-11 01:01] LABS: Hematocrit 30.4 % (35.3-44.9); Hemoglobin 9.9 g/dL (11.5-15.4)
[2017-11-11 01:18] LABS: BUN/Creatinine Ratio 16 (6-26); Blood Urea Nitrogen 11 mg/dL (8-23); Calcium 8.4 mg/dL (8.6-10.3); Carbon Dioxide 28 mEq/L (23-29); Chloride 103 mEq/L (98-107); Glucose 99 mg/dL (70-105); Osmolality,Calculated 281 (280-300); Potassium 3.5 mEq/L (3.5-5.1); Sodium 136 mEq/L (136-145); eGFR For African Americans > 60 (> 60); eGFR For Non-African Americans > 60 (> 60)
[2017-11-11] MEDS: *HR* OxyCODONE/APAP 5/325 TABLET PO PRN (02:31)
[2017-11-11] MEDS ORDERED: *HR* Enoxaparin 30 MG/0.3 ML SYRINGE SQ SCH (06:00)
--- NOTE | 2017-11-11 06:24 | Orthopedics Progress Note ---
Date of Encounter: 11/11/17 Time of Encounter: 06:24 - Assessment and Plan (1) Chronic pain Current Visit: No Status: Chronic Qualifiers: Chronic pain type: other chronic pain Qualified Code(s): G89.29 - Other chronic pain (2) Osteoporosis Current Visit: No Status: Chronic Qualifiers: Osteoporosis type: unspecified Presence of current pathological fracture: unspecified Qualified Code(s): M81.0 - Age-related osteoporosis without current pathological fracture (3) Asthma Current Visit: No Status: Chronic Qualifiers: Asthma severity: unspecified severity Asthma persistence: unspecified Asthma complication type: unspecified Qualified Code(s): J45.909 - Unspecified asthma, uncomplicated (4) Nicotine dependence Current Visit: No Status: Chronic Qualifiers: Nicotine product type: unspecified Substance use status: unspecified nicotine-induced disorder Qualified Code(s): F17.209 - Nicotine dependence, unspecified, with unspecified nicotine-induced disorders (5) HTN (hypertension) Current Visit: No Status: Chronic Qualifiers: Hypertension type: unspecified Qualified Code(s): I10 - Essential (primary ) hypertension (6) Rheumatoid arthritis Current Visit: No Status: Chronic Qualifiers: Rheumatoid arthritis location: unspecified site Rheumatoid factor presence : unspecified presence Qualified Code(s): M06.9 - Rheumatoid arthritis, unspecified (7) Status post total left knee replacement Current Visit: No Status: Chronic (8) Obesity (BMI 30.0-34.9) Current Visit: No Status: Chronic (9) Leukocytosis Current Visit: No Status: Acute Qualifiers: Leukocytosis type: unspecified Qualified Code(s): D72.829 - Elevated white blood cell count, unspecified (10) Arthritis of right knee Current Visit: Yes Status: Chronic (11) Status post total right knee replacement Current Visit: Yes Status: Acute (12) Acute blood loss anemia Current Visit: Yes Status: Acute Subjective Interval history: Patient was seen this morning doing well without complaints. Afebrile vital signs stable. Operative extremity: Neurovascularly intact Dressing clean dry and intact Calves nontender Assessment and plan: Continue with postoperative care Hemoglobin 9.9 discharged today Objective Vital signs: Vital Signs Temp Pulse Resp BP Pulse Ox 11/11/17 03:13 98.8 F 87 18 119/69 95 11/10/17 22:56 98.9 F 77 18 122/71 95 11/10/17 22:52 16 91 11/10/17 20:27 98 F 74 15 122/66 95 11/10/17 19:21 98 F 72 16 101/61 95 11/10/17 18:43 97.6 F 66 16 107/57 93 11/10/17 18:12 95 11/10/17 18:05 97.6 F 73 16 119/57 93 11/10/17 17:54 97.4 F L 70 16 113/75 95 11/10/17 17:44 97.4 F L 76 16 106/69 96 11/10/17 17:34 75 16 113/69 96 11/10/17 17:24 74 16 118/77 94 11/10/17 17:14 97.7 F 76 16 99/69 100 11/10/17 15:54 84 15 98/71 96 11/10/17 15:51 83 15 112/88 97 11/10/17 15:48 85 15 118/64 96 11/10/17 15:42 87 15 123/69 97 11/10/17 15:38 80 15 118/64 96 11/10/17 15:36 83 15 123/64 96 11/10/17 15:33 86 15 129/71 97 11/10/17 15:31 82 15 153/89 97 11/10/17 15:15 71 15 151/89 97 11/10/17 15:05 93 15 142/101 96 11/10/17 12:53 18 138/85 96 11/10/17 12:08 98.1 F 101 18 138/85 96 Intake and Output 11/10/17 11/10/17 11/11/17 15:59 23:59 07:59 Intake Total 1000 / 1000 20 / 20 600 / 600 Output Total 200 / 200 0 / 0 Balance 1000 / 1000 -180 / -180 600 / 600 Intake: IV Fluids 1000 / 1000 20 / 20 100 / 100 Lactated Ringers 1,000 ML @ 25 1000 / 1000 mls/hr IVC .Q24H SHOB[facility] Rx#: [id number] Ancef Syringe 2,000 MG/20 ML 2, 20 / 20 000 mg In 20 ml @ 200 mls/hr IVPB PREOP ONE Rx#:[id number] Ancef 2,000 MG In 0.9 % Sodium 100 / 100 Chloride 100 ML @ 200 mls/hr IVPB Q8HR SHOBHA Rx#:[id number] Oral 0 / 0 500 / 500 Output: Urine 0 / 0 0 / 0 Estimated Blood Loss 200 / 200 Other: # Voids 1 Weight 81.647 kg - Labs CBC & BMP: 11/11/17 00:37 04 00:37 Labs: Abnormal lab results Hgb 9.9 g/dL (11.5-15.4) L 11/11/17 00:37 Hct 30.4 % (35.3-44.9) L 11/11/17 00:37 Calcium 8.4 mg/dL (8.6-10.3) L 11/11/17 00:37 - VTE Documentation of Mechanical Device: Venous foot pump, device Consult Discharge Plan - Plan Referrals: Cha Araiza CNP [Primary Care Provider] - Prescriptions: Aspirin Enteric Coated [Aspirin EC] 325 mg PO BID 10 Days #20 tablet. Oxycodone HCl 5 mg PO Q6H PRN 7 Days #28 tablet PRN Reason: Severe Pain
[2017-11-11] MEDS: *HR* OxyCODONE Immed Rel 5 MG TABLET PO PRN ×3 (06:28→14:32)
[2017-11-11] MEDS: Budesonide/Formoterol 160/4.5 MDI IH SCH (08:13)
[2017-11-11] MEDS ORDERED: amLODIPine 5 MG TABLET PO SCH (09:00)
[2017-11-11] MEDS ORDERED: Cyanocobalamin (B-12) 1,000 MCG TABLET PO SCH (09:00)
[2017-11-11] MEDS ORDERED: Loratadine 10 MG TABLET PO SCH (09:00)
[2017-11-11] MEDS ORDERED: predniSONE 10 MG TABLET PO SCH (09:00)
[2017-11-11 12:02] VITALS: BP 163/81
[2017-11-11] MEDS ORDERED: Ketorolac 15 MG/ML VIAL IVP ONE (13:49)
[2017-11-12] MEDS ORDERED: NON-FORMULARY MEDICATION 1 EACH EACH (Alendronate Sodium [Alendronate Sodium] 70 MG) PO SCH (19:31)
== END 2017-11-11 15:30 | disposition home or self-care (01) | DRG 470 ==
LOC: SAMDAY 11:52 → 3NENU 11:53 → SAMDAY 11-11 15:27
PROVIDERS: ADMIT Orthopaedic Surgery; ATTEND Orthopaedic Surgery